=== PATIENT | male | born 1960 | race Caucasian/White ===

== ENCOUNTER → 2016-08-14 | Outpatient (CLI) | payer BC ==
--- NOTE | 2016-08-14 17:06 | RAD ---
PA and lateral chest radiographs 08/14/2016 Clinical history: Chest congestion with a history of bronchitis. PA and lateral digital radiographs of the chest were obtained. Comparison study dated 07/03/2016. The cardiac silhouette is borderline enlarged. The thoracic aorta is minimally tortuous. Mild elevation of the right hemidiaphragm is seen anteriorly, unchanged. No acute pulmonary infiltrate is noted. No pneumothorax or pleural effusion is seen. The osseous structures are unchanged. Impression: No acute pulmonary infiltrate is seen.
== END | disposition home or self-care (01) ==
LOC: DXRADRC 11:48
PROVIDERS: ATTEND Physician Assistant Medical
DX: J40 Bronchitis, not specified as acute or chronic (principal)
CPT/HCPCS: 71020

== ENCOUNTER → 2017-01-12 | Outpatient (CLI) | payer OTHER, BC ==
[~2017-01-12] MED LIST: BUPIVACAINE MPF 0.25% 10 ML VIAL. ONE; LIDOCAINE 1% PF 30 ML VIAL. ONE; methylPREDNISolone ACETATE 40 MG/ML VIAL. ONE
== END | disposition home or self-care (01) ==
LOC: SURG 14:50
PROVIDERS: ATTEND Anesthesiology Pain Medicine
DX: M75.52 Bursitis of left shoulder (principal); J44.9 Chronic obstructive pulmonary disease, unspecified; M19.91 Primary osteoarthritis, unspecified site; Z72.89 Other problems related to lifestyle; Z88.6 Allergy status to analgesic agent; Z88.2 Allergy status to sulfonamides; Z88.8 Allergy status to other drugs, medicaments and biological substances
CPT/HCPCS: 20611; J1030; J2001; J3490; 20610